=== PATIENT | male | born 1955 | race Caucasian/White ===

== ENCOUNTER → 2023-09-22 14:36 | Outpatient (REF) | payer BC, SELFPAY | LOC: EMG 14:36 | PROVIDERS: ATTENDING PHYSICIAN Psychiatry & Neurology Neurology; FAMILY PHYSICIAN Family Medicine Geriatric Medicine | DX: R20.0 Anesthesia of skin (principal); G62.9 Polyneuropathy, unspecified | CPT/HCPCS: 95886; 95913 ==

== ENCOUNTER → 2025-02-13 13:13 | Outpatient (REF) | payer BC, SELFPAY | LOC: RAD 13:13 | PROVIDERS: ATTENDING PHYSICIAN Physician Assistant Surgical; FAMILY PHYSICIAN Family Medicine Geriatric Medicine | DX: Z01.818 Encounter for other preprocedural examination (principal) | CPT/HCPCS: 71046; 72040 ==

== ENCOUNTER → 2025-03-06 07:12 | Outpatient (REF) | payer BC, SELFPAY | LOC: RAD 07:12 | PROVIDERS: ATTENDING PHYSICIAN Specialist; FAMILY PHYSICIAN Family Medicine Geriatric Medicine | DX: M25.512 Pain in left shoulder (principal); M75.42 Impingement syndrome of left shoulder | CPT/HCPCS: 73200 ==

== ENCOUNTER → 2025-03-10 08:39 | Outpatient (REF) | payer BC, SELFPAY | LOC: MRI 08:39 | PROVIDERS: ATTENDING PHYSICIAN Physician Assistant Surgical; FAMILY PHYSICIAN Family Medicine Geriatric Medicine | DX: M19.012 Primary osteoarthritis, left shoulder (principal); M23.91 Unspecified internal derangement of right knee; M17.11 Unilateral primary osteoarthritis, right knee | CPT/HCPCS: 73721 ==